=== PATIENT | female | born 1945 | race Caucasian/White ===

== ENCOUNTER 2018-08-24 09:48 | Emergency (ER) | payer MEDICARE ==
[2018-08-24] MEDS ORDERED: Aluminum Hydroxide/Magnesium Hydroxide Susp (30 mL) PO STA (10:01)
[2018-08-24 10:04] VITALS: BP 161/75; PULSE 84; RESP 16; TEMP 97.8; O2SAT 96
[2018-08-24] MEDS ORDERED: Aluminum Hydroxide/Magnesium Hydroxide Susp (30 mL) ONE (10:05)
--- NOTE | 2018-08-24 10:48 | C.PDOC ---
History Of Present Illness 73 year old female, otherwise well and has no medical problems, comes in to ED for pain and swelling to her right ankle since yesterday. Patient states that the pain started out of nowhere and denies any trauma to her ankle. She reports that she had difficulty walking yesterday due to the pain. This morning, patient woke up feeling better but came in to the ER to be re-evaluated. She denies any fever, chills, headache, or other complaints. Time Seen by Provider: 08/24/18 10:00 Chief Complaint (Nursing): Lower Extremity Problem/Injury History Per: Patient History/Exam Limitations: no limitations Onset/Duration Of Symptoms: Days Current Symptoms Are (Timing): Still Present Past Medical History Reviewed: Historical Data, Nursing Documentation, Vital Signs Vital Signs: Last Vital Signs Temp 97.8 F 08/24/18 09:56 Pulse 84 08/24/18 09:56 Resp 16 08/24/18 09:56 BP 161/75 H 08/24/18 09:56 Pulse Ox 96 08/24/18 09:56 - Medical History PMH: Arthritis, Depression (AT TIMES WHEN THINKING ABOUT CHILDREN) Denies: Chronic Kidney Disease Family History: States: No Known Family Hx - Social History Hx Alcohol Use: Yes Hx Substance Use: No Review Of Systems Except As Marked, All Systems Reviewed And Found Negative. Constitutional: Negative for: Fever, Chills Musculoskeletal: Positive for: Other (Right Ankle Pain and Swelling). Negative for: Leg Pain Neurological: Negative for: Numbness, Headache Physical Exam - Physical Exam Appears: Non-toxic, No Acute Distress Skin: Warm, Dry Head: Atraumatic, Normacephalic Eye(s): bilateral: Normal Inspection Oral Mucosa: Moist Neck: Supple Extremity: No Calf Tenderness (or swelling), Capillary Refill (less than 2 seconds), No Deformity, Swelling (to the medial aspect of right ankle) Pulses: Right Dorsalis Pedis: Normal Neurological/Psych: Oriented x3, Normal Speech, Normal Motor, Normal Sensation, Normal Reflexes ED Course And Treatment O2 Sat by Pulse Oximetry: 96 (RA) Pulse Ox Interpretation: Normal - Other Rad Right Ankle XR X-Ray: Read By Radiologist Interpretation: FINDINGS: BONES: No acute fracture or destructive lesion appreciated. Old healed fracture distal right fibula. JOINTS: Normal. No osteoarthritis. Ankle mortise maintained. Talar dome intact. SOFT TISSUES: Normal. OTHER FINDINGS: None. IMPRESSION: Old healed fracture distal right fibula. No acute fracture, subluxation or dislocation identified. Medical Decision Making Medical Decision Making: Plan: --Maalox 30 ml PO --Motrin 600 mg PO --Right Ankle XR Disposition Counseled Patient/Family Regarding: Studies Performed, Diagnosis, Need For Followup, Rx Given - Disposition Referrals: Lisa Cano DPM [Staff Provider] - Disposition: HOME/ ROUTINE Disposition Time: 10:47 Condition: STABLE Prescriptions: Ibuprofen [Motrin] 600 mg PO TID #15 tab Instructions: Osteoarthritis Forms: [facility] ([place]), General Discharge Instructions - POA Present On Arrival: None - Clinical Impression Clinical Impression: Arthritis - Scribe Statement The provider has reviewed the documentation as recorded by the Anselmo Marinelli Provider Attestation: All medical record entries made by the Scribe were at my direction and personally dictated by me. I have reviewed the chart and agree that the record accurately reflects my personal performance of the history, physical exam, medical decision making, and the department course for this patient. I have also personally directed, reviewed, and agree with the discharge instructions and disposition.
--- NOTE | 2018-08-24 10:49 | RAD ---
Date of service: 08/24/2018 PROCEDURE: Right Ankle Radiographs. HISTORY: pain and swelling, no trauma COMPARISON: None available. FINDINGS: BONES: No acute fracture or destructive lesion appreciated. Old healed fracture distal right fibula. JOINTS: Normal. No osteoarthritis. Ankle mortise maintained. Talar dome intact SOFT TISSUES: Normal. OTHER FINDINGS: None. IMPRESSION: Old healed fracture distal right fibula. No acute fracture, subluxation or dislocation identified.
== END 2018-08-24 10:54 | disposition home or self-care (01) ==
LOC: C.ER 09:48
DX: M19.90 Unspecified osteoarthritis, unspecified site (principal)